=== PATIENT | male | born 1940 | race Caucasian/White ===

== ENCOUNTER 2017-02-01 07:09 | Day surgery (SDC) | payer OTHER ==
[2017-01-29 10:27] VITALS: BMI 34.0
[2017-02-01] MEDS ORDERED: PROPOFOL 20 ML ONE ×2 (07:35)
[2017-02-01] MEDS ORDERED: LIDOCAINE HCL/PF 2% SDV 5ML VIAL ONE (07:35)
[2017-02-01 10:43] VITALS: BP 120/73; PULSE 69; TEMP 97.6
--- NOTE | 2017-02-03 10:39 | PATH ---
Surgical Pathology Report Patient Name: BREANNA VILLAVICENCIO [facility]. Rec. #: [id number] /Age/Gender: 1940 (Age: 76) / M Account: [id number] Location: [facility]-ENDOSCOPY Taken: 02/01/2017 Received: 02/01/2017 Reported: 02/03/2017 Physicians: William Monterroso M.D. Specimen(s) Received A: BX RIGHT COLON POLYP (PROXIMAL) B: DISTAL RIGHT COLON POLYP Clinical History Preoperative diagnosis: History of polyp Postoperative diagnosis: Right colon polyps Final Diagnosis A. COLON, PROXIMAL RIGHT, POLYPECTOMY: TUBULOVILLOUS ADENOMA. B. COLON, DISTAL RIGHT, POLYPECTOMY: MULTIPLE PORTIONS OF TUBULOVILLOUS ADENOMA. Comment: Recommend correlation with clinical findings and follow up as clinically indicated. Electronically Signed James Couch M.D. Gross Description A. Received in formalin, labeled "polyp right colon proximal" is a gorman, polypoid portion of soft tissue measuring 0.5 cm. in greatest dimension. The specimen is submitted in toto in one cassette. B. Received in formalin, labeled "distal right colon polyp" are 3 gorman, irregular to polypoid portions of soft tissue ranging from 0.3-0.7 cm. in greatest dimension. The specimens are submitted in toto in one cassette. 02/02/201702/02/2017
== END 2017-02-01 10:44 | disposition home or self-care (01) ==
LOC: FASU-ENDO 07:09
PROVIDERS: ATTEND Internal Medicine Gastroenterology
PROC: 0DBL8ZZ Excision of Transverse Colon, Via Natural or Artificial Opening Endoscopic (ICD-10-PCS; 2017-02-01)
PROC: 0DBK8ZX Excision of Ascending Colon, Via Natural or Artificial Opening Endoscopic, Diagnostic (ICD-10-PCS; principal; 2017-02-01 08:30)
DX: Z86.010 Personal history of colon polyps (principal); K63.5 Polyp of colon
CPT/HCPCS: 88305-TC

== ENCOUNTER 2018-08-03 07:37 | Day surgery (SDC) | payer OTHER | END 2018-08-03 09:30 | disposition home or self-care (01) | LOC: FASU-ENDO 07:37 ==